=== PATIENT | female | born 1940 | race Two or more races ===

== ENCOUNTER 2020-08-02 12:30 | Inpatient (IN) | payer OTHER ==
[~2020-08-02] VITALS: Ht 152.4 cm; Wt 72.1 kg
[2020-08-02] MEDS ORDERED: SYNTHROID50 MCG PO (15:19)
[2020-08-02] MEDS ORDERED: [UNRECOGNIZED DRUG - OTHER] PO (15:20)
[2020-08-02] MEDS ORDERED: LOSART PO (15:20)
[2020-08-02] MEDS ORDERED: INDUR PO (15:21)
[2020-08-02] MEDS ORDERED: PLAVIX75 MG PO (15:21)
[2020-08-02] MEDS ORDERED: ATORVASTATIN CA40 MG PO (15:22)
[2020-08-02] MEDS ORDERED: VITAMIN D3 PO (15:24)
[2020-08-02] MEDS ORDERED: HUMALOG100 UNIT/2 (15:25)
[2020-08-02] MEDS ORDERED: LANTUS (15:26)
[2020-08-08] MEDS ORDERED: LATANOPROST2.5 ML (07:57)
[2020-08-08] MEDS ORDERED: NORVASC5 MG PO (07:58)
[2020-08-08] MEDS ORDERED: SEMGLEE100 UNIT/1 (07:58)
[2020-08-08] MEDS ORDERED: MAXIMUM D3325 MCG (07:58)
[2020-08-08] MEDS ORDERED: COZAAR25 MG PO (07:59)
[2020-08-08] MEDS ORDERED: ISOSORBIDE MONO30 MG PO (08:02)
[2020-08-08] MEDS ORDERED: AMLODIPINE BESY10 MG PO (08:11)
[2020-08-08] MEDS ORDERED: ISOSORBIDE MONO30 MG (08:12)
== END 2020-08-09 12:57 | disposition home or self-care (01) | DRG 334 ==
LOC: O/R 08-08 06:27 → SURH 08-08 06:27
PROVIDERS: ADMIT Colon & Rectal Surgery; ATTEND Colon & Rectal Surgery
PROC: 0DBP4ZZ Excision of Rectum, Percutaneous Endoscopic Approach (ICD-10-PCS; principal; 2020-08-08 07:00)
DX: K62.9 Disease of anus and rectum, unspecified (principal); E11.9 Type 2 diabetes mellitus without complications; I10 Essential (primary) hypertension; E66.8 Other obesity; Z79.4 Long term (current) use of insulin